=== PATIENT | male | born 1960 | race Caucasian/White ===

== ENCOUNTER → 2016-12-14 | Outpatient (REF) | payer OTHER ==
[2016-12-14 12:02] LABS: BASO % 0.6 % (0.0-1.0); EOS # 0.4 K/mm3 (0.0-0.50); EOS % 5.9 % (0.0-3.0); LARGE UNSTAINED CELL # 0.1 K/mm3 (0.0-0.4); LARGE UNSTAINED CELL % 1.1 % (0.0-4.0); LYMPH # 1.7 K/mm3 (1.5-4.5); LYMPH % 24.2 % (24.0-44.0); MEAN CORPUSCULAR HEMOGLOBIN 28.2 pg (27.0-33.0); MEAN CORPUSCULAR HGB CONC 33.4 g/dl (32.0-36.5); MEAN CORPUSCULAR VOLUME 84.6 fl (80.0-96.0); MONO # 0.6 K/mm3 (0.0-0.8); MONO % 9.5 % (0.0-5.0); NEUTROPHILS # 3.9 K/mm3 (1.8-7.7); NEUTROPHILS % 58.6 % (36.0-66.0); PLATELET COUNT, AUTOMATED 345 k/mm3 (150-450); RED CELL DISTRIBUTION WIDTH 13.9 % (11.5-14.5); WHITE BLOOD COUNT 6.6 K/mm3 (4.0-10.0)
[2016-12-14 12:12] LABS: ALBUMIN 3.4 GM/DL (3.2-5.2); ALBUMIN/GLOBULIN RATIO 0.76 (1.00-1.93); ALKALINE PHOSPHATASE 116 U/L (45-117); ALT/SGPT 33 U/L (12-78); ANION GAP 8 MEQ/L (8-16); AST/SGOT 21 U/L (15-37); BILIRUBIN,TOTAL 0.5 MG/DL (0.2-1.0); BLOOD UREA NITROGEN 14 MG/DL (7-18); CARBON DIOXIDE LEVEL 27 MEQ/L (21-32); CHLORIDE LEVEL 105 MEQ/L (98-107); CHOLESTEROL LEVEL 185 MG/DL (<200); CREATININE FOR GFR 1.02 MG/DL (0.70-1.30); GLOMERULAR FILTRATION RATE > 60.0 (>56); GLUCOSE, FASTING 97 MG/DL (70-105); POTASSIUM SERUM 4.3 MEQ/L (3.5-5.1); SODIUM LEVEL 140 MEQ/L (136-145); TOTAL PROTEIN 7.9 GM/DL (6.4-8.2); TRIGLYCERIDES LEVEL 144 MG/DL (<150)
== END ==
LOC: M SFHCCLAY 08:22
PROVIDERS: ATTEND Nurse Practitioner
DX: D47.3 Essential (hemorrhagic) thrombocythemia (principal); Z00.00 Encounter for general adult medical examination without abnormal findings; Z12.5 Encounter for screening for malignant neoplasm of prostate

== ENCOUNTER → 2017-07-31 | Outpatient (REF) | payer OTHER | LOC: M SFHCCLAY 08:48 | PROVIDERS: ATTEND Nurse Practitioner Family | DX: T88.8XXD Other specified complications of surgical and medical care, not elsewhere classified, subsequent encounter (principal) ==

== ENCOUNTER → 2017-08-02 | Outpatient (CLI) | payer OTHER ==
--- NOTE | 2017-08-02 13:39 | REP ---
ULTRASOUND RIGHT LEG SOFT TISSUES: Real-time sonographic evaluation of the right leg soft tissues performed. In the posterior right thigh there is reportedly fluid drainage from the skin. At that location there is a underlying sinus tract containing complex fluid which communicates with an oval complex fluid collection at the lateral aspect of the knee soft tissues. This fluid collection measures approximately 12 x 1.3 x 4.4 cm. Signed by Daniel Harmon MD 08/03/2017 09:12 A
== END ==
LOC: M RAD 10:21 → EEVIPCON 10:21
PROVIDERS: ATTEND Nurse Practitioner Family
DX: T88.8XXD Other specified complications of surgical and medical care, not elsewhere classified, subsequent encounter (principal); X58.XXXD Exposure to other specified factors, subsequent encounter; Y92.89 Other specified places as the place of occurrence of the external cause; Y93.89 Activity, other specified; Y99.8 Other external cause status

== ENCOUNTER → 2017-11-09 | Outpatient (CLI) | payer BC | LOC: M RAD 08:51 | DX: K80.20 Calculus of gallbladder without cholecystitis without obstruction (principal); R93.3 Abnormal findings on diagnostic imaging of other parts of digestive tract ==

== ENCOUNTER → 2017-12-04 | Outpatient (REF) | payer BC ==
[2017-12-04 16:02] LABS: BASO % 0.1 % (0.0-1.0); EOS # 0.6 10^3/uL (0.0-0.50); EOS % 6.5 % (0.0-3.0); HEMATOCRIT 41.6 % (42.0-52.0); HEMOGLOBIN 13.2 g/dl (13.5-17.5); IMMATURE GRANULOCYTE % 0.7 % (0-3.0); LYMPH # 1.7 10^3/uL (1.5-4.5); LYMPH % 19.3 % (24.0-44.0); MEAN CORPUSCULAR HEMOGLOBIN 26.5 pg (27.0-33.0); MEAN CORPUSCULAR HGB CONC 31.7 g/dl (32.0-36.5); MEAN CORPUSCULAR VOLUME 83.4 fl (80.0-96.0); MONO # 0.7 10^3/uL (0.0-0.8); MONO % 8.4 % (0.0-5.0); NEUTROPHILS # 5.7 10^3/uL (1.8-7.7); PLATELET COUNT, AUTOMATED 632 10^3/uL (150-450); RED BLOOD COUNT 4.99 10^6/uL (4.30-6.10); RED CELL DISTRIBUTION WIDTH 14.9 % (11.5-14.5); WHITE BLOOD COUNT 8.8 10^3/uL (4.0-10.0)
[2017-12-04 16:18] LABS: ALBUMIN 2.8 GM/DL (3.2-5.2); ALBUMIN/GLOBULIN RATIO 0.52 (1.00-1.93); ALKALINE PHOSPHATASE 206 U/L (45-117); ALT/SGPT 68 U/L (12-78); ANION GAP 5 MEQ/L (8-16); AST/SGOT 46 U/L (7-37); BILIRUBIN,TOTAL 1.2 MG/DL (0.2-1.0); BLOOD UREA NITROGEN 12 MG/DL (7-18); C REACTIVE PROTEIN QUANTITATIV 5.95 MG/DL (0.00-0.30); CALCIUM LEVEL 8.9 MG/DL (8.5-10.1); CARBON DIOXIDE LEVEL 27 MEQ/L (21-32); CHLORIDE LEVEL 106 MEQ/L (98-107); CREATININE FOR GFR 0.99 MG/DL (0.70-1.30); GLOMERULAR FILTRATION RATE > 60.0 (>56); GLUCOSE, FASTING 64 MG/DL (70-100); SODIUM LEVEL 138 MEQ/L (136-145); TOTAL PROTEIN 8.2 GM/DL (6.4-8.2); VANCOMYCIN RANDOM 37.6 UG/ML
[2017-12-04 16:24] LABS: ERYTHROCYTE SEDIMENTATION RATE 58 mm/hr (0-20)
== END ==
LOC: M LAB REF 15:53
DX: Z79.2 Long term (current) use of antibiotics (principal); M86.60 Other chronic osteomyelitis, unspecified site
CPT/HCPCS: 80053

== ENCOUNTER → 2017-12-07 | Outpatient (REF) | payer BC ==
[2017-12-07 14:42] LABS: ALBUMIN 2.7 GM/DL (3.2-5.2); ALBUMIN/GLOBULIN RATIO 0.55 (1.00-1.93); ALKALINE PHOSPHATASE 183 U/L (45-117); ALT/SGPT 63 U/L (12-78); ANION GAP 6 MEQ/L (8-16); AST/SGOT 33 U/L (7-37); BLOOD UREA NITROGEN 13 MG/DL (7-18); CALCIUM LEVEL 8.6 MG/DL (8.5-10.1); CARBON DIOXIDE LEVEL 28 MEQ/L (21-32); CHLORIDE LEVEL 107 MEQ/L (98-107); GLOMERULAR FILTRATION RATE > 60.0 (>56); GLUCOSE, FASTING 113 MG/DL (70-100); POTASSIUM SERUM 4.4 MEQ/L (3.5-5.1); SODIUM LEVEL 141 MEQ/L (136-145); TOTAL PROTEIN 7.6 GM/DL (6.4-8.2)
== END ==
LOC: M LAB REF 13:29
DX: M86.60 Other chronic osteomyelitis, unspecified site (principal); T84.7XXD Infection and inflammatory reaction due to other internal orthopedic prosthetic devices, implants and grafts, subsequent encounter; Z79.2 Long term (current) use of antibiotics
CPT/HCPCS: 80053

== ENCOUNTER → 2017-12-11 | Outpatient (REF) | payer BC ==
[2017-12-11 11:47] LABS: BASO % 0.4 % (0.0-1.0); EOS # 1.2 10^3/uL (0.0-0.50); EOS % 13.5 % (0.0-3.0); HEMATOCRIT 42.4 % (42.0-52.0); HEMOGLOBIN 13.5 g/dl (13.5-17.5); IMMATURE GRANULOCYTE % 1.7 % (0-3.0); LYMPH # 2.3 10^3/uL (1.5-4.5); LYMPH % 24.9 % (24.0-44.0); MEAN CORPUSCULAR HEMOGLOBIN 26.6 pg (27.0-33.0); MEAN CORPUSCULAR HGB CONC 31.8 g/dl (32.0-36.5); MEAN CORPUSCULAR VOLUME 83.5 fl (80.0-96.0); MONO # 1.1 10^3/uL (0.0-0.8); MONO % 12.4 % (0.0-5.0); NEUTROPHILS # 4.3 10^3/uL (1.8-7.7); NEUTROPHILS % 47.1 % (36.0-66.0); PLATELET COUNT, AUTOMATED 489 10^3/uL (150-450); RED BLOOD COUNT 5.08 10^6/uL (4.30-6.10); RED CELL DISTRIBUTION WIDTH 14.8 % (11.5-14.5); WHITE BLOOD COUNT 9.1 10^3/uL (4.0-10.0)
[2017-12-11 12:16] LABS: ALKALINE PHOSPHATASE 199 U/L (45-117); ALT/SGPT 89 U/L (12-78); ANION GAP 8 MEQ/L (8-16); AST/SGOT 66 U/L (7-37); BLOOD UREA NITROGEN 16 MG/DL (7-18); C REACTIVE PROTEIN QUANTITATIV 2.41 MG/DL (0.00-0.30); CALCIUM LEVEL 8.6 MG/DL (8.5-10.1); CARBON DIOXIDE LEVEL 27 MEQ/L (21-32); CHLORIDE LEVEL 107 MEQ/L (98-107); CREATININE FOR GFR 1.03 MG/DL (0.70-1.30); GLOMERULAR FILTRATION RATE > 60.0 (>56); GLUCOSE, FASTING 69 MG/DL (70-100); POTASSIUM SERUM 4.5 MEQ/L (3.5-5.1); SODIUM LEVEL 142 MEQ/L (136-145); VANCOMYCIN RANDOM 31.4 UG/ML
[2017-12-11 14:21] LABS: ERYTHROCYTE SEDIMENTATION RATE 40 mm/hr (0-20)
== END ==
LOC: M LAB REF 11:27
DX: T84.7XXD Infection and inflammatory reaction due to other internal orthopedic prosthetic devices, implants and grafts, subsequent encounter (principal); Z79.2 Long term (current) use of antibiotics; M86.60 Other chronic osteomyelitis, unspecified site
CPT/HCPCS: 80053

== ENCOUNTER → 2017-12-15 | Outpatient (REF) | payer BC ==
[2017-12-15 12:41] LABS: BASO % 0.4 % (0.0-1.0); EOS # 1.2 10^3/uL (0.0-0.50); EOS % 14.2 % (0.0-3.0); HEMATOCRIT 42.8 % (42.0-52.0); HEMOGLOBIN 13.9 g/dl (13.5-17.5); LYMPH # 1.7 10^3/uL (1.5-4.5); LYMPH % 20.8 % (24.0-44.0); MEAN CORPUSCULAR HEMOGLOBIN 26.7 pg (27.0-33.0); MEAN CORPUSCULAR HGB CONC 32.5 g/dl (32.0-36.5); MEAN CORPUSCULAR VOLUME 82.3 fl (80.0-96.0); MONO # 1.3 10^3/uL (0.0-0.8); NEUTROPHILS # 3.9 10^3/uL (1.8-7.7); NEUTROPHILS % 47.6 % (36.0-66.0); PLATELET COUNT, AUTOMATED 469 10^3/uL (150-450); RED CELL DISTRIBUTION WIDTH 15.1 % (11.5-14.5); WHITE BLOOD COUNT 8.1 10^3/uL (4.0-10.0)
[2017-12-15 13:05] LABS: ERYTHROCYTE SEDIMENTATION RATE 12 mm/hr (0-20)
[2017-12-15 13:14] LABS: ALBUMIN 2.9 GM/DL (3.2-5.2); ALBUMIN/GLOBULIN RATIO 0.66 (1.00-1.93); ALKALINE PHOSPHATASE 159 U/L (45-117); ALT/SGPT 91 U/L (12-78); ANION GAP 8 MEQ/L (8-16); AST/SGOT 60 U/L (7-37); BILIRUBIN,TOTAL 0.8 MG/DL (0.2-1.0); BLOOD UREA NITROGEN 12 MG/DL (7-18); C REACTIVE PROTEIN QUANTITATIV 0.83 MG/DL (0.00-0.30); CALCIUM LEVEL 8.5 MG/DL (8.5-10.1); CARBON DIOXIDE LEVEL 25 MEQ/L (21-32); CHLORIDE LEVEL 109 MEQ/L (98-107); CREATININE FOR GFR 0.98 MG/DL (0.70-1.30); GLOMERULAR FILTRATION RATE > 60.0 (>56); GLUCOSE, FASTING 108 MG/DL (70-100); POTASSIUM SERUM 4.8 MEQ/L (3.5-5.1); SODIUM LEVEL 142 MEQ/L (136-145); TOTAL PROTEIN 7.3 GM/DL (6.4-8.2); VANCOMYCIN RANDOM 20.5 UG/ML
== END ==
LOC: M LAB REF 12:01
DX: T84.7XXD Infection and inflammatory reaction due to other internal orthopedic prosthetic devices, implants and grafts, subsequent encounter (principal); Z79.2 Long term (current) use of antibiotics; Y83.1 Surgical operation with implant of artificial internal device as the cause of abnormal reaction of the patient, or of later complication, without mention of misadventure at the time of the procedure
CPT/HCPCS: 80053

== ENCOUNTER → 2017-12-18 | Outpatient (REF) | payer BC ==
[2017-12-18 15:34] LABS: BASO % 0.5 % (0.0-1.0); EOS # 0.9 10^3/uL (0.0-0.50); EOS % 10.6 % (0.0-3.0); HEMOGLOBIN 13.8 g/dl (13.5-17.5); IMMATURE GRANULOCYTE % 0.6 % (0-3.0); LYMPH # 1.9 10^3/uL (1.5-4.5); LYMPH % 22.9 % (24.0-44.0); MEAN CORPUSCULAR HEMOGLOBIN 26.6 pg (27.0-33.0); MEAN CORPUSCULAR HGB CONC 32.1 g/dl (32.0-36.5); MEAN CORPUSCULAR VOLUME 82.9 fl (80.0-96.0); MONO # 1.4 10^3/uL (0.0-0.8); MONO % 16.5 % (0.0-5.0); NEUTROPHILS # 4.1 10^3/uL (1.8-7.7); NEUTROPHILS % 48.9 % (36.0-66.0); PLATELET COUNT, AUTOMATED 450 10^3/uL (150-450); RED BLOOD COUNT 5.19 10^6/uL (4.30-6.10); RED CELL DISTRIBUTION WIDTH 15.4 % (11.5-14.5); WHITE BLOOD COUNT 8.3 10^3/uL (4.0-10.0)
[2017-12-18 15:52] LABS: ALBUMIN 3.1 GM/DL (3.2-5.2); ALBUMIN/GLOBULIN RATIO 0.72 (1.00-1.93); ALKALINE PHOSPHATASE 157 U/L (45-117); ALT/SGPT 81 U/L (12-78); ANION GAP 6 MEQ/L (8-16); AST/SGOT 47 U/L (7-37); BILIRUBIN,TOTAL 0.8 MG/DL (0.2-1.0); BLOOD UREA NITROGEN 14 MG/DL (7-18); C REACTIVE PROTEIN QUANTITATIV 0.66 MG/DL (0.00-0.30); CALCIUM LEVEL 9.1 MG/DL (8.5-10.1); CARBON DIOXIDE LEVEL 30 MEQ/L (21-32); CHLORIDE LEVEL 107 MEQ/L (98-107); CREATININE FOR GFR 0.94 MG/DL (0.70-1.30); GLOMERULAR FILTRATION RATE > 60.0 (>56); GLUCOSE, FASTING 60 MG/DL (70-100); POTASSIUM SERUM 4.1 MEQ/L (3.5-5.1); SODIUM LEVEL 143 MEQ/L (136-145); TOTAL PROTEIN 7.4 GM/DL (6.4-8.2); VANCOMYCIN RANDOM 19.5 UG/ML
[2017-12-18 16:19] LABS: ERYTHROCYTE SEDIMENTATION RATE 13 mm/hr (0-20)
== END ==
LOC: M LAB REF 15:23
DX: Z79.2 Long term (current) use of antibiotics (principal)
CPT/HCPCS: 80053

== ENCOUNTER → 2017-12-25 | Outpatient (REF) | payer BC ==
[2017-12-25 11:07] LABS: BASO % 0.4 % (0.0-1.0); EOS # 1.7 10^3/uL (0.0-0.50); HEMATOCRIT 43.4 % (42.0-52.0); HEMOGLOBIN 13.9 g/dl (13.5-17.5); IMMATURE GRANULOCYTE % 0.1 % (0-3.0); LYMPH # 1.5 10^3/uL (1.5-4.5); LYMPH % 19.8 % (24.0-44.0); MEAN CORPUSCULAR HEMOGLOBIN 26.7 pg (27.0-33.0); MEAN CORPUSCULAR VOLUME 83.5 fl (80.0-96.0); MONO # 0.9 10^3/uL (0.0-0.8); MONO % 11.7 % (0.0-5.0); NEUTROPHILS # 3.3 10^3/uL (1.8-7.7); NEUTROPHILS % 45.2 % (36.0-66.0); PLATELET COUNT, AUTOMATED 327 10^3/uL (150-450); RED CELL DISTRIBUTION WIDTH 15.3 % (11.5-14.5); WHITE BLOOD COUNT 7.4 10^3/uL (4.0-10.0)
[2017-12-25 11:30] LABS: EOS % 22.8 % (0.0-3.0); POSITIVE DIFF POS FLAG
[2017-12-25 11:32] LABS: ALBUMIN/GLOBULIN RATIO 0.73 (1.00-1.93); ALKALINE PHOSPHATASE 140 U/L (45-117); ALT/SGPT 63 U/L (12-78); ANION GAP 4 MEQ/L (8-16); AST/SGOT 43 U/L (7-37); BILIRUBIN,TOTAL 0.7 MG/DL (0.2-1.0); BLOOD UREA NITROGEN 15 MG/DL (7-18); C REACTIVE PROTEIN QUANTITATIV 1.63 MG/DL (0.00-0.30); CALCIUM LEVEL 8.7 MG/DL (8.5-10.1); CARBON DIOXIDE LEVEL 29 MEQ/L (21-32); CHLORIDE LEVEL 109 MEQ/L (98-107); CREATININE FOR GFR 0.99 MG/DL (0.70-1.30); GLOMERULAR FILTRATION RATE > 60.0 (>56); GLUCOSE, FASTING 97 MG/DL (70-100); POTASSIUM SERUM 4.2 MEQ/L (3.5-5.1); SODIUM LEVEL 142 MEQ/L (136-145); TOTAL PROTEIN 7.1 GM/DL (6.4-8.2); VANCOMYCIN RANDOM 16.4 UG/ML
[2017-12-25 11:42] LABS: ERYTHROCYTE SEDIMENTATION RATE 20 mm/hr (0-20)
== END ==
LOC: M LAB REF 10:58
DX: Z79.2 Long term (current) use of antibiotics (principal); M86.60 Other chronic osteomyelitis, unspecified site; T84.7XXD Infection and inflammatory reaction due to other internal orthopedic prosthetic devices, implants and grafts, subsequent encounter; Y83.8 Other surgical procedures as the cause of abnormal reaction of the patient, or of later complication, without mention of misadventure at the time of the procedure
CPT/HCPCS: 80053

== ENCOUNTER → 2018-02-07 | Outpatient (REF) | payer BC | LOC: M SFHCCLAY 11:50 | DX: M86.459 Chronic osteomyelitis with draining sinus, unspecified femur (principal) | CPT/HCPCS: 87070; 87186 ==

== ENCOUNTER → 2018-02-08 | Outpatient (CLI) | payer BC | LOC: M RAD 09:40 | DX: T88.8XXD Other specified complications of surgical and medical care, not elsewhere classified, subsequent encounter (principal); Y83.9 Surgical procedure, unspecified as the cause of abnormal reaction of the patient, or of later complication, without mention of misadventure at the time of the procedure | CPT/HCPCS: 76882 ==

== ENCOUNTER → 2018-07-16 | Outpatient (REF) | payer BC ==
[2018-07-16 11:56] LABS: BASO % 0.4 % (0.0-1.0); EOS # 0.3 10^3/uL (0.0-0.50); EOS % 4.3 % (0.0-3.0); HEMATOCRIT 48.3 % (42.0-52.0); HEMOGLOBIN 15.8 g/dl (13.5-17.5); IMMATURE GRANULOCYTE % 0.1 % (0-3.0); LYMPH # 1.1 10^3/uL (1.5-4.5); LYMPH % 16.6 % (24.0-44.0); MEAN CORPUSCULAR HEMOGLOBIN 28.1 pg (27.0-33.0); MEAN CORPUSCULAR HGB CONC 32.7 g/dl (32.0-36.5); MEAN CORPUSCULAR VOLUME 85.8 fl (80.0-96.0); MONO # 0.8 10^3/uL (0.0-0.8); MONO % 11.3 % (0.0-5.0); NEUTROPHILS # 4.5 10^3/uL (1.8-7.7); NEUTROPHILS % 67.3 % (36.0-66.0); PLATELET COUNT, AUTOMATED 384 10^3/uL (150-450); RED BLOOD COUNT 5.63 10^6/uL (4.30-6.10); RED CELL DISTRIBUTION WIDTH 14.7 % (11.5-14.5); WHITE BLOOD COUNT 6.7 10^3/uL (4.0-10.0)
[2018-07-16 12:39] LABS: ALBUMIN 3.2 GM/DL (3.2-5.2); ALBUMIN/GLOBULIN RATIO 0.86 (1.00-1.93); ALKALINE PHOSPHATASE 115 U/L (45-117); ALT/SGPT 45 U/L (12-78); ANION GAP 8 MEQ/L (8-16); AST/SGOT 36 U/L (7-37); BILIRUBIN,TOTAL 0.5 MG/DL (0.2-1.0); BLOOD UREA NITROGEN 13 MG/DL (7-18); CARBON DIOXIDE LEVEL 28 MEQ/L (21-32); CHLORIDE LEVEL 108 MEQ/L (98-107); CREATININE FOR GFR 0.85 MG/DL (0.70-1.30); FREE T4 0.95 NG/DL (0.76-1.46); GLOMERULAR FILTRATION RATE > 60.0 (>56); GLUCOSE, FASTING 95 MG/DL (70-100); POTASSIUM SERUM 4.5 MEQ/L (3.5-5.1); SODIUM LEVEL 144 MEQ/L (136-145); THYROID STIMULATING HORMONE 0.587 uIU/ML (0.358-3.740); TOTAL PROTEIN 6.9 GM/DL (6.4-8.2)
== END ==
LOC: M SFHCCLAY 07:48
DX: R25.2 Cramp and spasm (principal); R26.9 Unspecified abnormalities of gait and mobility; R63.4 Abnormal weight loss
CPT/HCPCS: 84443

== ENCOUNTER → 2019-09-23 | Outpatient (CLI) | payer BC ==
--- NOTE | 2019-09-23 16:52 | REP ---
Right shoulder three views: There is acromioclavicular osteoarthritis. Mineralization is normal. There is no fracture or dislocation. I suspect there is calcification of the coracoclavicular ligament. This may be degenerative or from prior injury. There are no other calcifications. No fracture or dislocation. Impression: Coracoclavicular ligament calcification. Acromioclavicular osteoarthritis. Otherwise, negative right shoulder. Electronically Signed by Daniel Tang MD 09/23/2019 04:44 P
--- NOTE | 2019-09-23 16:58 | REP ---
Left hip including the femur five views: There is an intramedullary aquiles extending from the greater trochanter to just above the knee transfixing a healed fracture at the junction of the middle distal thirds of the femur. The fracture has healed in satisfactory position alignment. There is exuberant callous along the superior margin of the greater trochanter. There is exuberant callus at the healed fracture site. There is mild joint space narrowing of the right hip superiorly compatible with osteoarthritis. The exuberant callus at the greater tuberosity may impinge the left hip acetabular roof. Electronically Signed by Daniel Tang MD 09/23/2019 04:49 P
== END ==
LOC: M CLY 13:43
PROVIDERS: ATTEND Nurse Practitioner Family
DX: M25.511 Pain in right shoulder (principal); M25.552 Pain in left hip

== ENCOUNTER → 2019-09-23 | Outpatient (REF) | payer BC ==
[2019-09-23 16:53] LABS: BASO % 0.4 % (0.0-1.0); EOS # 0.2 10^3/uL (0.0-0.5); HEMATOCRIT 47.5 % (42.0-52.0); HEMOGLOBIN 15.6 g/dl (13.5-17.5); LYMPH # 1.9 10^3/uL (1.5-5.0); LYMPH % 20.8 % (24.0-44.0); MEAN CORPUSCULAR HEMOGLOBIN 28.4 pg (27.0-33.0); MEAN CORPUSCULAR HGB CONC 32.8 g/dl (32.0-36.5); MEAN CORPUSCULAR VOLUME 86.5 fl (80.0-96.0); MONO % 11.3 % (0.0-5.0); NEUTROPHILS # 5.9 10^3/uL (1.5-8.5); NEUTROPHILS % 65.1 % (36.0-66.0); PLATELET COUNT, AUTOMATED 339 10^3/uL (150-450); RED BLOOD COUNT 5.49 10^6/uL (4.30-6.10); WHITE BLOOD COUNT 9.1 10^3/uL (4.0-10.0)
[2019-09-23 17:29] LABS: HEMOGLOBIN A1c 5.7 %
[2019-09-23 17:32] LABS: ALBUMIN 3.8 GM/DL (3.2-5.2); ALT/SGPT 37 U/L (12-78); BILIRUBIN,TOTAL 0.5 MG/DL (0.2-1.0); BLOOD UREA NITROGEN 17 MG/DL (7-18); CALCIUM LEVEL 9.3 MG/DL (8.5-10.1); CARBON DIOXIDE LEVEL 29 MEQ/L (21-32); CHLORIDE LEVEL 105 MEQ/L (98-107); CHOLESTEROL LEVEL 189 MG/DL (<200); CHOLESTEROL RISK RATIO 3.048 (<5); CREATININE FOR GFR 1.05 MG/DL (0.70-1.30); GLOMERULAR FILTRATION RATE > 60.0 (>56); GLUCOSE, FASTING 80 MG/DL (70-100); HDL CHOLESTEROL 62 MG/DL (>40); LDL CHOLESTEROL 111 MG/DL (<100); NON-HDL-C 127 MG/DL; POTASSIUM SERUM 4.3 MEQ/L (3.5-5.1); SODIUM LEVEL 139 MEQ/L (136-145); TOTAL PROTEIN 7.6 GM/DL (6.4-8.2); TRIGLYCERIDES LEVEL 82 MG/DL (<150)
== END ==
LOC: M SFHCCLAY 13:24
PROVIDERS: ATTEND Nurse Practitioner Family
DX: R03.0 Elevated blood-pressure reading, without diagnosis of hypertension (principal); Z13.1 Encounter for screening for diabetes mellitus

== ENCOUNTER 2020-05-11 12:19 | Inpatient (IN) | payer BC ==
[~2020-05-11] VITALS: Ht 188 cm; Wt 98.6 kg
[2020-05-11 13:19] LABS: BASO % 0.1 % (0.0-1.0); EOS % 0.1 % (0.0-3.0); HEMATOCRIT 49.4 % (42.0-52.0); HEMOGLOBIN 16.1 g/dl (13.5-17.5); LYMPH # 1.3 10^3/uL (1.5-5.0); LYMPH % 6.8 % (24.0-44.0); MEAN CORPUSCULAR HEMOGLOBIN 28.3 pg (27.0-33.0); MEAN CORPUSCULAR HGB CONC 32.6 g/dl (32.0-36.5); MONO # 1.8 10^3/uL (0.0-0.8); MONO % 9.7 % (0.0-5.0); NEUTROPHILS # 15.3 10^3/uL (1.5-8.5); NEUTROPHILS % 82.7 % (36.0-66.0); PLATELET COUNT, AUTOMATED 303 10^3/uL (150-450); RED BLOOD COUNT 5.68 10^6/uL (4.30-6.10); WHITE BLOOD COUNT 18.5 10^3/uL (4.0-10.0)
[2020-05-11] MEDS ORDERED: methylPREDNISolone 125MG 2ML VIAL IV ONE (13:30)
[2020-05-11] MEDS ORDERED: ALBUTEROL SULFATE 2.5 MG/0.5 ML INH NEB SOLN INH ONE (13:30)
[2020-05-11] MEDS ORDERED: IPRATROPIUM 0.5MG/ALBUTEROL 2.5MG INH SOL UD 3ML (DUONEB) NEB ONE (13:30)
--- NOTE | 2020-05-11 13:39 | REPVR ---
PROCEDURE INFORMATION: Exam: XR Chest, 1 View Exam date and time: 05/11/2020 1:07 PM Age: 59 years old Clinical indication: Shortness of breath; Additional info: SOB TECHNIQUE: Imaging protocol: XR of the chest Views: 1 view. COMPARISON: No relevant prior studies available. FINDINGS: Lungs: Bilateral patchy pulmonary consolidation, right greater than left. Pleural space: Unremarkable. No pleural effusion. No pneumothorax. Heart/Mediastinum: Mild prominence of the cardiac silhouette. Bones/joints: Degenerative change of the spine. IMPRESSION: Bilateral pulmonary consolidation, which may be due to alveolar edema versus pneumonia. Electronically signed by: Natalya Pinto On 05/11/2020 13:39:34 PM
[2020-05-11 13:53] LABS: ALBUMIN 2.9 GM/DL (3.2-5.2); ALT/SGPT 25 U/L (12-78); BILIRUBIN,DIRECT 0.6 MG/DL (0.0-0.2); BILIRUBIN,TOTAL 1.4 MG/DL (0.2-1.0); BLOOD UREA NITROGEN 33 MG/DL (7-18); CALCIUM LEVEL 9.3 MG/DL (8.5-10.1); CARBON DIOXIDE LEVEL 25 MEQ/L (21-32); CHLORIDE LEVEL 102 MEQ/L (98-107); CK-MB VALUE MASS 4.2 NG/ML (<3.6); CPK CREATINE PHOSPHOKINASE 295 U/L (39-308); CREATININE FOR GFR 1.23 MG/DL (0.70-1.30); GLOMERULAR FILTRATION RATE > 60.0 (>56); GLUCOSE, FASTING 125 MG/DL (70-100); MB/CK RELATIVE INDEX 1.42 (< OR =4); NT-PRO BNP 5024 PG/ML (<125); POTASSIUM SERUM 4.5 MEQ/L (3.5-5.1); SODIUM LEVEL 135 MEQ/L (136-145); THYROID STIMULATING HORMONE 0.941 uIU/ML (0.358-3.740); TOTAL PROTEIN 7.5 GM/DL (6.4-8.2); TROPONIN I 0.08 NG/ML (< 0.10)
[2020-05-11] MEDS ORDERED: cefTRIAXone SOD 1 GM in D5W MINI-BAG PLUS 50 ML IV ONE (14:00)
[2020-05-11] MEDS ORDERED: DOXYCYCLINE HYCLATE 100 MG in D5W MINI-BAG PLUS 100 ML IV ONE (14:00)
[2020-05-11 14:10] LABS: ERYTHROCYTE SEDIMENTATION RATE 41 mm/hr (0-20)
[2020-05-11] MEDS ORDERED: FUROSEMIDE 20MG/2ML VIAL (J1940) IV ONE (14:15)
[2020-05-11] MEDS ORDERED: BETA0.0543 TOP (14:22)
[2020-05-11] MEDS ORDERED: CLAR5TAB7 PO (14:22)
[2020-05-11] MEDS ORDERED: ACETAMINOPHEN TAB 650MG DOSE (2X325MG) PO PRN (15:00)
[2020-05-11] MEDS ORDERED: ALBUTEROL 90 MCG/ACT 8GM HFA INHALER INH PRN (15:00)
--- NOTE | 2020-05-11 15:14 | HPEPDOC ---
General Date of Admission 05/11/20 Date of Service: May 11, 2020 Chief Complaint The patient is a 59-year-old male admitted with a reason for visit of Diff Breathing. Source: Patient Exam Limitations: No limitations Timing/Duration: Day(s) Severity: Severe Associated Symptoms: Shortness of breath History of Present Illness Patient is 59 years old male with past medical history of BPH, chronic hip and knee pain presented to the hospital with acute hypoxemic respiratory failure. Patient stated that for past few days he developed increased shortness of breath associated with fatigue. Patient denied any fever or chills. In ER patient was found to have tachycardia, acute hypoxemic respiratory failure requiring high flow oxygen via nasal cannula., White blood count of 18.5, BNP 5024, chest x-ray showed Bilateral pulmonary consolidation, which may be due to alveolar edema versus pneumonia. Troponin 0.08. EKG showed sinus tachycardia Home Medications Scheduled Betamethasone Dipropionate (Betamethasone Dipropionate) 0.05% Cream..g., 1 AP PLIC TOP BID, (Reported) APPLY TO WRISTS AND FOREARMS Scheduled PRN Loratadine/Pseudoephedrine (Claritin-D 12 Hour Tablet) 1 Each Tab.er.12h, 1 TAB PO DAILY PRN for SEASONAL ALLERGIES, (Reported) Allergies Coded Allergies: No Known Allergies (Verified , 02/24/03) Past Medical History Medical History BPH HX ELEVATED PLATELET COUNT CHRONIC PAIN- HIPS/KNEES SEASONAL ALLERGIES GERD Surgical History FX RIGHT FEMUR, LEFT FEMUR- ORIF, RIGHT ARM ORIF 2001 SAMINA REMOVED FOR RIGHT LEG 11/16/2017 GALLBLADDER 11/2017 MRSA OSTEOMYELITIS, 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 Social History * Smoker: former Smoker Alcohol: occationally Drugs: denies A-FIB/CHADSVASC A-FIB History Current/History of A-Fib/PAF?: No Current PO Anticoag Therapy: No Review of Systems Constitutional: Reports: Malaise, Fatigue; Denies: Chills, Fever Eyes: Denies: Pain ENT: Denies: Head Aches Skin: Denies: Rash Pulmonary: Reports: Dyspnea Cardiovascular: Reports: Palpitations; Denies: Chest Pain Gastrointestinal: Denies: Nausea, Vomiting Genitourinary: Denies: Frequency Hematologic: Denies: Bruising Endocrine: Denies: Polyphagia Musculoskeletal: Denies: Neck Pain Neurological: Denies: Weakness Psych: Reports: Mood Normal Physical Examination General Exam: Positive: Alert, Cooperative Eye Exam: Positive: PERRLA ENT Exam: Positive: Atraumatic Neck Exam: Positive: Supple, JVD Chest Exam: Positive: Diminished; Negative: Clear to auscultation Heart Exam: Positive: Tachycardic Telemetry: Positive: Sinus Abdomen Exam: Positive: Normal bowel sounds Extremity Exam: Negative: Clubbing, Cyanosis Skin Exam: Positive: Nl turgor and temperature Neuro Exam: Positive: Strength at 5/5 X4 ext, Cranial Nerves 3-12 NL Psych Exam: Positive: Mental status NL Vital Signs Vital Signs Date Time Temp Pulse Resp B/P (MAP) Pulse Ox O2 Delivery O2 Flow Rate FiO2 05/11/20 13:45 125 32 127/86 (100) 95 05/11/20 13:45 97.4 Room Air Laboratory Data Labs 24H Laboratory Tests 2 05/11/20 12:45: Immature Granulocyte % (Auto) 0.6, Neutrophils (%) (Auto) 82.7H, Lymphocytes (%) (Auto) 6.8L, Monocytes (%) (Auto) 9.7H, Eosinophils (%) (Auto) 0.1, Basophils (%) (Auto) 0.1, Neutrophils # (Auto) 15.3H, Lymphocytes # (Auto) 1.3L, Monocytes # (Auto) 1.8H, Eosinophils # (Auto) 0.0, Basophils # (Auto) 0.0, Nucleated Red Blood Cells % (auto) 0.0, Erythrocyte Sedimentation Rate 41H, Anion Gap 8, Glomerular Filtration Rate > 60.0, Calcium Level 9.3, Total Bilirubin 1.4H, Direct Bilirubin 0.6H, Aspartate Amino Transf (AST/SGOT) 27, Alanine Aminotransferase (ALT/SGPT) 25, Alkaline Phosphatase 125H, Total Creatine Kinase 295, Creatine Kinase MB 4.2H, Creatine Kinase MB Relative Index 1.42, Troponin I 0.08, C-Reactive Protein, Quantitative 25.70H, MO-Sau-X-Type Natriuretic Peptide 5024H, Total Protein 7.5, Albumin 2.9L, Albumin/Globulin Ratio 0.6, Thyroid Stimulating Hormone (TSH) 0.941 CBC/BMP Laboratory Tests 05/11/20 12:45 Microbiology Microbiology 05/11/20 Blood Culture, Received Pending 05/11/20 Respiratory Virus Panel (PCR) (ARIEL), Received Pending 05/11/20 Blood Culture, Received Pending Assessment/Plan Patient is 59 years old male with past medical history of BPH, chronic hip and knee pain presented to the hospital with acute hypoxemic respiratory failure. Patient stated that for past few days he developed increased shortness of breath associated with fatigue. Patient denied any fever or chills. In ER patient was found to have tachycardia, acute hypoxemic respiratory failure requiring high flow oxygen via nasal cannula., White blood count of 18.5, BNP 5024, chest x-ray showed Bilateral pulmonary consolidation, which may be due to alveolar edema versus pneumonia. Troponin 0.08. EKG showed sinus tachycardia Problems (1) Sepsis Status: Acute Problem Text: Most likely secondary to bilateral pneumonia Patient has tachypnea, tachycardia, elevated white blood count Cephalexin IV, azithromycin IV MRSA screen Hold fluid for now due to acute CHF (2) Congestive heart failure Status: Acute Problem Text: BNP significantly elevated, plus JVD Echo STAT I's and O's Cardiac diet Dr Newberry was contacted by phone he recommended IV Lasix. Continue to monitor troponin (3) Pneumonia Status: Acute Problem Text: X-ray showed Bilateral pulmonary consolidation, which may be due to alveolar edema versus pneumonia. Covid 19 test negative Ceftriaxone IV, azithromycin IV Blood culture Sputum culture CTA to rule out PE (4) Acute hypoxemic respiratory failure Status: Acute Problem Text: Secondary to bilateral pneumonia Continue high flow oxygen Continue to monitor ABG Plan / VTE VTE Prophylaxis Ordered?: Yes IVA RAE DO May 11, 2020 15:14
[2020-05-11] MEDS ORDERED: IPRATROPIUM 0.5MG/ALBUTEROL 2.5MG INH SOL UD 3ML (DUONEB) INH SCH (16:00)
[2020-05-11] MEDS ORDERED: ISOVUE-370 76% 100ML VIAL As Ordered ONE (16:04)
--- NOTE | 2020-05-11 18:42 | REPVR ---
PROCEDURE INFORMATION: Exam: CT Angiography Chest With Contrast Exam date and time: 05/11/2020 5:54 PM Age: 59 years old Clinical indication: Shortness of breath; Additional info: Acute respiratory failure TECHNIQUE: Imaging protocol: Computed tomographic angiography of the chest with intravenous contrast. 3D rendering (Not supervised by radiologist): MIP and/or 3D reconstructed images were created by the technologist. Radiation optimization: All CT scans at this facility use at least one of these dose optimization techniques: automated exposure control; mA and/or kV adjustment per patient size (includes targeted exams where dose is matched to clinical indication); or iterative reconstruction. Contrast material: ISOVUE 370; Contrast volume: 75 ml; Contrast route: INTRAVENOUS (IV); COMPARISON: CR PORTABLE CHEST X-RAY 05/11/2020 1:16 PM FINDINGS: Pulmonary arteries: There are no pulmonary emboli. Aorta: No thoracic aortic aneurysm or dissection. Lungs: There is diffuse alveolar filling perhaps most prominent in the right upper lobe. Pleural space: There is a large right and moderate left pleural effusion. Heart: No cardiomegaly or pericardial effusion. Lymph nodes: There are primarily subcentimeter lymph nodes throughout the mediastinum although there may be multiple adjacent lymph nodes in the subcarinal posterior mediastinum. Bones/joints: No acute fracture. Soft tissues: Unremarkable. Other findings: There are no significant findings in the upper abdomen. IMPRESSION: 1. No evidence of pulmonary emboli, thoracic aortic aneurysm or dissection. 2. Diffuse alveolar filling throughout all lobes as well as large right and smaller left pleural effusions most likely due to edema however diffuse pneumonia is also within the differential. Other etiologies are less likely. Electronically signed by: Aleida Pope On 05/11/2020 18:42:28 PM
[2020-05-11 19:15] VITALS: BP 131/74
--- NOTE | 2020-05-11 20:31 | ECGEPIP ---
[facility] - ED Test Date: 2020-05-11 Pat Name: DESTINEY PENA Department: Room: 0103 Gender: Male Orthopedic Physical Therapist: poonam : 1960 Requested By: HOLLY Mistry Order Number: [id number] Reading MD: Susana Minor Measurements Intervals [place] Rate: 122 P: 67 ME: 148 QRS: 79 QRSD: 132 T: 6 QT: 327 QTc: 467 Interpretive Statements SINUS TACHYCARDIA WITH OCCASIONAL VENTRICULAR PREMATURE COMPLEXES RIGHT BUNDLE BRANCH BLOCK NO PRIOR Electronically Signed on 05-11-2020 20:31:46 EDT by Susana Minor
[2020-05-11] MEDS ORDERED: HEPARIN SOD (PORCINE) 5000UNITS/ML 1ML VIAL/SYRINGE SC SCH (21:00)
--- NOTE | 2020-05-12 07:35 | ECHO ---
DATE OF PROCEDURE: 05/11/2020 Age: 59 Gender: Male Height: 74 inches Weight: 218 pounds Body surface area: 2.26 m2 PATIENT LOCATION: Inpatient intensive care unit (ICU). REFERRING PHYSICIAN: Emanuel Harmon MD and Fab Nelson DO INDICATION: Murmur. Pulmonary edema. 2D MEASUREMENTS: RV 4.8 cm LV 5.8 cm Septum 1.2 cm Posterior wall 1.1 cm Aortic root 3.2 cm LA 4.7 cm LVEF 70% DOPPLER MEASUREMENTS: AV 0.97 msec LVOT 0.84 msec MV Difficult in light of superimposed early and late diastolic left ventricular filling with sinus tachycardia. PV 0.57 msec Pulmonary artery acceleration time 56 msec RVSP 51 mmHg IVC 2.4 cm COMMENTS: Sinus tachycardia with left bundle branch block. M-mode and two-dimensional echocardiography was performed with pulse, continuous wave, color flow, and tissue Doppler studies. Mildly dilated left ventricle with wall thickness upper limits of normal. Septal wall motion abnormality possibly related to his conduction disturbance versus right ventricular pressure overload, yet preserved global resting systolic function with hyperkinesis of other scales. Moderately dilated left atrium, but unable to comment on LV diastolic function based on the degree of severe mitral insufficiency. Moderately dilated right heart chambers with hyperkinetic wall motion and Doppler evidence of at least moderate pulmonary hypertension. Moderately dilated IVC with normal respiratory collapse in keeping with a central venous pressure upper limits of normal. Mildly dilated aortic root. Normal appearing aortic valve with adequate cusp separation. 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 Normal appearing tricuspid valve with mild insufficiency. No separate intracardiac mass or pericardial effusion. A preliminary report of this study was called directly to Dr. Harmon in the emergency room and Dr. Nelson, the hospitalist caring for the patient at this time, in the intensive care unit. In light of the observed valve findings, we have strongly recommended immediate transfer to a cardiovascular service for immediate mitral valve repair. JANET
[2020-05-12] MEDS ORDERED: cefTRIAXone SOD 1 GM in D5W MINI-BAG PLUS 50 ML IV SCH (14:00)
[2020-05-12] MEDS ORDERED: AZITHROMYCIN INJ 500 MG, VIAL MATE ADAPTER 1 EACH in D5W 250 ML IV SCH (15:00)
[2020-05-12 17:07] LABS: Lyme Disease IgG/IgM Antibodie <0.91 ISR (0.00-0.90); Lyme Disease IgM Ab Quantitati <0.80 index (0.00-0.79)
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
== END 2020-05-11 19:39 | disposition short-term general hospital (02) | DRG 720 ==
LOC: M ED 12:19 → M ED INP 14:48 → ENRESERV 15:50
PROVIDERS: ADMIT Internal Medicine; ATTEND Internal Medicine
DX: A41.9 Sepsis, unspecified organism (principal); J18.9 Pneumonia, unspecified organism; I50.9 Heart failure, unspecified; J96.01 Acute respiratory failure with hypoxia; K21.9 Gastro-esophageal reflux disease without esophagitis; N40.0 Benign prostatic hyperplasia without lower urinary tract symptoms; M62.18 Other rupture of muscle (nontraumatic), other site

== ENCOUNTER → 2020-05-25 | Outpatient (REF) | payer BC ==
[~2020-05-25] MED LIST: BETA0.0543 TOP; CLAR5TAB7 PO
[2020-05-25 17:11] LABS: INR 1.47; PROTHROMBIN TIME 18.2 SECONDS (12.5-14.3)
== END ==
LOC: M LABDRAWC 15:59
DX: Z01.812 Encounter for preprocedural laboratory examination (principal)

== ENCOUNTER → 2020-05-28 | Outpatient (REF) | payer BC ==
[2020-05-28 16:16] LABS: INR 1.71; PROTHROMBIN TIME 20.5 SECONDS (12.5-14.3)
== END ==
LOC: M LABDRAWC 15:46
PROVIDERS: ATTEND Internal Medicine Cardiovascular Disease
DX: I47.1 Supraventricular tachycardia (principal); I48.0 Paroxysmal atrial fibrillation; I34.0 Nonrheumatic mitral (valve) insufficiency

== ENCOUNTER → 2020-06-01 | Outpatient (REF) | payer BC ==
[2020-06-01 16:32] LABS: BASO # 0.1 10^3/uL (0.0-0.2); BASO % 0.9 % (0.0-1.0); EOS # 0.3 10^3/uL (0.0-0.5); EOS % 2.8 % (0.0-3.0); HEMATOCRIT 30.9 % (42.0-52.0); LYMPH # 1.6 10^3/uL (1.5-5.0); LYMPH % 18.4 % (24.0-44.0); MEAN CORPUSCULAR HEMOGLOBIN 25.6 pg (27.0-33.0); MEAN CORPUSCULAR HGB CONC 29.1 g/dl (32.0-36.5); MEAN CORPUSCULAR VOLUME 87.8 fl (80.0-96.0); MONO % 11.1 % (0.0-5.0); NEUTROPHILS # 5.7 10^3/uL (1.5-8.5); NEUTROPHILS % 65.2 % (36.0-66.0); PLATELET COUNT, AUTOMATED 535 10^3/uL (150-450); RED BLOOD COUNT 3.52 10^6/uL (4.30-6.10); WHITE BLOOD COUNT 8.8 10^3/uL (4.0-10.0)
[2020-06-01 16:59] LABS: ALBUMIN 2.6 GM/DL (3.2-5.2); BLOOD UREA NITROGEN 14 MG/DL (7-18); CALCIUM LEVEL 8.8 MG/DL (8.5-10.1); CARBON DIOXIDE LEVEL 25 MEQ/L (21-32); CHLORIDE LEVEL 108 MEQ/L (98-107); CREATININE FOR GFR 0.97 MG/DL (0.70-1.30); GLOMERULAR FILTRATION RATE > 60.0 (>56); GLUCOSE, FASTING 102 MG/DL (70-100); MAGNESIUM LEVEL 2.2 MG/DL (1.8-2.4); NT-PRO BNP 1192 PG/ML (<125); PHOSPHORUS LEVEL 3.5 MG/DL (2.5-4.9); POTASSIUM SERUM 4.6 MEQ/L (3.5-5.1); SODIUM LEVEL 139 MEQ/L (136-145)
== END ==
LOC: M LABDRAWC 15:49
PROVIDERS: ATTEND Internal Medicine Cardiovascular Disease
DX: I50.9 Heart failure, unspecified (principal)

== ENCOUNTER → 2020-06-04 | Outpatient (REF) | payer BC ==
[2020-06-04 12:49] LABS: INR 3.75; PROTHROMBIN TIME 37.9 SECONDS (12.5-14.3)
== END ==
LOC: M LABDRAWC 11:22
PROVIDERS: ATTEND Physician Assistant
DX: I47.1 Supraventricular tachycardia (principal); I48.0 Paroxysmal atrial fibrillation; I34.0 Nonrheumatic mitral (valve) insufficiency

== ENCOUNTER → 2020-06-08 | Outpatient (REF) | payer BC ==
[2020-06-08 12:03] LABS: INR 2.77; PROTHROMBIN TIME 29.9 SECONDS (12.5-14.3)
== END ==
LOC: M LABDRAWC 10:57
PROVIDERS: ATTEND Internal Medicine Cardiovascular Disease
DX: I47.1 Supraventricular tachycardia (principal); I48.0 Paroxysmal atrial fibrillation; I34.0 Nonrheumatic mitral (valve) insufficiency

== ENCOUNTER → 2020-06-22 | Outpatient (REF) | payer BC ==
[2020-06-22 12:08] LABS: INR 1.63; PROTHROMBIN TIME 19.7 SECONDS (12.5-14.3)
== END ==
LOC: M LABDRAWC 11:30
PROVIDERS: ATTEND Physician Assistant
DX: I47.1 Supraventricular tachycardia (principal); I48.0 Paroxysmal atrial fibrillation; I34.0 Nonrheumatic mitral (valve) insufficiency

== ENCOUNTER → 2020-07-15 | Outpatient (REF) | payer BC | LOC: M SFHCCLAY 13:37 | PROVIDERS: ATTEND Physician Assistant | DX: L03.116 Cellulitis of left lower limb (principal) ==

== ENCOUNTER → 2020-07-20 | Outpatient (REF) | payer BC ==
[2020-07-20 18:26] LABS: INR 1.62; PROTHROMBIN TIME 19.6 SECONDS (12.5-14.3)
== END ==
LOC: M LABDRAWC 15:48
PROVIDERS: ATTEND Physician Assistant
DX: I47.1 Supraventricular tachycardia (principal); I48.0 Paroxysmal atrial fibrillation; I34.0 Nonrheumatic mitral (valve) insufficiency

== ENCOUNTER → 2020-08-04 | Outpatient (REF) | payer BC ==
[2020-08-04 16:41] LABS: INR 1.65; PROTHROMBIN TIME 19.9 SECONDS (12.5-14.3)
== END ==
LOC: M LABDRAWC 15:36
PROVIDERS: ATTEND Physician Assistant
DX: I47.1 Supraventricular tachycardia (principal); I48.0 Paroxysmal atrial fibrillation; I34.0 Nonrheumatic mitral (valve) insufficiency

== ENCOUNTER → 2020-08-19 | Outpatient (REF) | payer BC ==
[2020-08-19 16:31] LABS: INR 2.09; PROTHROMBIN TIME 23.9 SECONDS (12.5-14.3)
== END ==
LOC: M LABDRAWC 15:43
PROVIDERS: ATTEND Physician Assistant
DX: I47.1 Supraventricular tachycardia (principal); I48.0 Paroxysmal atrial fibrillation; I34.0 Nonrheumatic mitral (valve) insufficiency

== ENCOUNTER → 2020-09-17 | Outpatient (REF) | payer BC ==
[2020-09-17 18:25] LABS: INR 2.07; PROTHROMBIN TIME 23.8 SECONDS (12.5-14.3)
== END ==
LOC: M LABDRAWC 15:49
PROVIDERS: ATTEND Physician Assistant
DX: I47.1 Supraventricular tachycardia (principal); I48.0 Paroxysmal atrial fibrillation; I34.0 Nonrheumatic mitral (valve) insufficiency

== ENCOUNTER → 2020-10-15 | Outpatient (REF) | payer BC ==
[2020-10-15 16:29] LABS: BASO % 0.5 % (0.0-1.0); EOS # 0.5 10^3/uL (0.0-0.5); EOS % 5.4 % (0.0-3.0); HEMOGLOBIN 14.9 g/dl (13.5-17.5); LYMPH # 2.4 10^3/uL (1.5-5.0); LYMPH % 27.9 % (24.0-44.0); MEAN CORPUSCULAR HEMOGLOBIN 25.6 pg (27.0-33.0); MEAN CORPUSCULAR VOLUME 82.5 fl (80.0-96.0); MONO # 0.9 10^3/uL (0.0-0.8); MONO % 10.2 % (2.0-8.0); NEUTROPHILS # 4.8 10^3/uL (1.5-8.5); NEUTROPHILS % 55.4 % (36.0-66.0); PLATELET COUNT, AUTOMATED 338 10^3/uL (150-450); RED BLOOD COUNT 5.82 10^6/uL (4.30-6.10); WHITE BLOOD COUNT 8.7 10^3/uL (4.0-10.0)
[2020-10-15 16:47] LABS: INR 2.04; PROTHROMBIN TIME 23.5 SECONDS (12.5-14.3)
[2020-10-15 17:02] LABS: ALBUMIN 3.7 GM/DL (3.2-5.2); ALT/SGPT 26 U/L (12-78); BILIRUBIN,TOTAL 0.4 MG/DL (0.2-1.0); BLOOD UREA NITROGEN 20 MG/DL (7-18); CALCIUM LEVEL 8.9 MG/DL (8.5-10.1); CARBON DIOXIDE LEVEL 28 MEQ/L (21-32); CHLORIDE LEVEL 108 MEQ/L (98-107); CREATININE FOR GFR 1.07 MG/DL (0.70-1.30); GLOMERULAR FILTRATION RATE > 60.0 (>56); GLUCOSE, FASTING 82 MG/DL (70-100); POTASSIUM SERUM 4.5 MEQ/L (3.5-5.1); SODIUM LEVEL 140 MEQ/L (136-145); TOTAL PROTEIN 7.7 GM/DL (6.4-8.2)
== END ==
LOC: M LABDRAWC 15:43
PROVIDERS: ATTEND Internal Medicine Cardiovascular Disease
DX: I47.1 Supraventricular tachycardia (principal); I48.0 Paroxysmal atrial fibrillation; I34.0 Nonrheumatic mitral (valve) insufficiency

== ENCOUNTER → 2020-10-28 | Outpatient (CLI) | payer BC ==
--- NOTE | 2020-10-28 10:20 | REP ---
INDICATION: UNSPECIFIED VISUAL DISTURBANCE. COMPARISON: None. TECHNIQUE: Helical scanning is acquired. 5 mm axial images were reformatted. Coronal MPR images were generated. FINDINGS: Bone window settings demonstrate an intact bony calvarium. There is no evidence of skull fracture or incidental bony calvarial lesion. No intraorbital abnormality is seen. On soft tissue window setting images; the lateral, third, and fourth ventricles are normal in size and position. Harmon-white differentiation pattern is normal above and below the tentorium. There is moderate mucosal thickening affecting the ethmoid sinuses bilaterally. Mild mucosal thickening is seen in the sphenoid air cells bilaterally. There is a 3 mm hyperdense nodular focus in the right inferior and medial frontal lobe of uncertain significance. Possible small hyperdense nodule. No other intracranial lesion is appreciated. IMPRESSION: Bilateral ethmoid and sphenoid sinus mucosal thickening. 3 mm hyperdense nodular focus in the right inferior medial frontal lobe. Uncertain significance. Recommend MRI scanning of the brain without and with intravenous contrast for further evaluation. Otherwise negative brain CT.. <Electronically signed by Hunter Pacheco > 10/28/20 [id number]
== END ==
LOC: M RAD 09:04
PROVIDERS: ATTEND Nurse Practitioner Family
DX: H53.9 Unspecified visual disturbance (principal)

== ENCOUNTER → 2020-10-28 | Outpatient (CLI) | payer BC ==
[2020-10-28 10:31] LABS: BASO # 0.1 10^3/uL (0.0-0.2); BASO % 0.6 % (0.0-1.0); EOS # 0.5 10^3/uL (0.0-0.5); EOS % 5.1 % (0.0-3.0); HEMOGLOBIN 15.2 g/dl (13.5-17.5); LYMPH # 2.3 10^3/uL (1.5-5.0); LYMPH % 24.2 % (24.0-44.0); MEAN CORPUSCULAR HEMOGLOBIN 26.9 pg (27.0-33.0); MEAN CORPUSCULAR HGB CONC 32.3 g/dl (32.0-36.5); MONO % 10.7 % (2.0-8.0); NEUTROPHILS # 5.6 10^3/uL (1.5-8.5); NEUTROPHILS % 58.8 % (36.0-66.0); PLATELET COUNT, AUTOMATED 297 10^3/uL (150-450); RED BLOOD COUNT 5.66 10^6/uL (4.30-6.10); WHITE BLOOD COUNT 9.5 10^3/uL (4.0-10.0)
== END ==
LOC: M LAB 09:14
PROVIDERS: ATTEND Internal Medicine Cardiovascular Disease
DX: I34.0 Nonrheumatic mitral (valve) insufficiency (principal)

== ENCOUNTER → 2020-11-12 | Outpatient (REF) | payer BC ==
[2020-11-12 12:09] LABS: INR 2.86; PROTHROMBIN TIME 30.6 SECONDS (12.5-14.3)
== END ==
LOC: M LABDRAWC 11:10
PROVIDERS: ATTEND Internal Medicine Cardiovascular Disease
DX: I47.1 Supraventricular tachycardia (principal); I48.0 Paroxysmal atrial fibrillation; I34.0 Nonrheumatic mitral (valve) insufficiency

== ENCOUNTER → 2020-11-20 | Outpatient (CLI) | payer BC ==
--- NOTE | 2020-11-20 11:13 | REPVR ---
PROCEDURE INFORMATION: Exam: MR Head Without and With Contrast Exam date and time: 11/20/2020 10:54 AM Age: 60 years old Clinical indication: Abnormal findings; Abnormal radiologic findings of head/skull; Intracranial mass/space-occupying lesion; Patient HX: PT states left eye vision issues; Additional info: 3mm lesion brain f/u abn imag CT TECHNIQUE: Imaging protocol: MR of the head without and with intravenous contrast. Contrast material: PROHANCE; Contrast volume: 19 ml; Contrast route: INTRAVENOUS (IV); COMPARISON: CT Head without contrast 10/28/2020 9:27 AM FINDINGS: Brain: There are punctate scattered microhemorrhages in superior left frontal lobe, right precentral gyrus, periventricular region adjacent to left lateral ventricle, right occipital lobe, bilateral medial thalamus, right posterior temporal lobe, left inferior anterior and posterior temporal lobe, bilateral jenise, and left paramedian cerebellum. These are most commonly related to chronic hypertension. In region of hyperdense nodule on CT in inferior medial frontal lobe, there rounded 3.5 mm area nonacute hemorrhage. Postcontrast, this shows a small linear structure extending posteriorly and medially. 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 There is no surrounding edema. No additional areas parenchymal or leptomeningeal contrast enhancement. There are few scattered cerebral white matter changes which although nonspecific are likely minimal microvascular disease. Diffusion images are normal. No evidence of acute infarction. No evidence of acute intracranial hemorrhage. No extra-axial fluid collections. Ventricles and cerebrospinal fluid spaces are normal in size and configuration for the patient's age. There is no evidence of mass-effect or midline shift. Flow voids of the [place] and major cerebral vascular structures appear intact. Craniocervical junction appears unremarkable, with normal position of cerebellar tonsils and no evidence of Chiari I malformation. Cerebral ventricles: Normal. No ventriculomegaly. Bones/joints: Unremarkable as visualized. Paranasal sinuses: There is mucosal thickening throughout paranasal sinuses. There is right maxillary sinus retention polyp. Mastoid air cells: No significant mastoid effusion. Orbital cavity: Unremarkable. Soft tissues: Unremarkable as visualized. IMPRESSION: 1. Small hyperdense nodule on CT in right inferior medial frontal lobe is consistent with a small cavernous malformation and has an associated developmental venous anomaly. 2. Few scattered chronic microhemorrhages most commonly sequela of hypertension and correlate clinically. 3. No acute infarct, acute hemorrhage, or enhancing neoplasm. Electronically signed by: Isadora Dahl On 11/20/2020 11:13:24 AM
== END ==
LOC: M RAD 08:37
PROVIDERS: ATTEND Nurse Practitioner Family
DX: G93.9 Disorder of brain, unspecified (principal)

== ENCOUNTER → 2020-12-14 | Outpatient (REF) | payer BC ==
[2020-12-14 17:48] LABS: INR 2.3; PROTHROMBIN TIME 25.8 SECONDS (12.5-14.3)
== END ==
LOC: M LABDRAWC 15:46
PROVIDERS: ATTEND Physician Assistant
DX: I47.1 Supraventricular tachycardia (principal); I48.0 Paroxysmal atrial fibrillation; I34.0 Nonrheumatic mitral (valve) insufficiency

== ENCOUNTER → 2021-01-11 | Outpatient (REF) | payer BC ==
[2021-01-11 18:32] LABS: BASO # 0.1 10^3/uL (0.0-0.2); BASO % 0.5 % (0.0-1.0); EOS # 0.6 10^3/uL (0.0-0.5); EOS % 5.1 % (0.0-3.0); HEMATOCRIT 49.1 % (42.0-52.0); HEMOGLOBIN 15.4 g/dl (13.5-17.5); LYMPH # 2.5 10^3/uL (1.5-5.0); MEAN CORPUSCULAR HEMOGLOBIN 28.7 pg (27.0-33.0); MEAN CORPUSCULAR HGB CONC 31.4 g/dl (32.0-36.5); MEAN CORPUSCULAR VOLUME 91.6 fl (80.0-96.0); MONO # 1.1 10^3/uL (0.0-0.8); MONO % 10.4 % (2.0-8.0); NEUTROPHILS # 6.5 10^3/uL (1.5-8.5); NEUTROPHILS % 60.4 % (36.0-66.0); PLATELET COUNT, AUTOMATED 328 10^3/uL (150-450); RED BLOOD COUNT 5.36 10^6/uL (4.30-6.10); WHITE BLOOD COUNT 10.8 10^3/uL (4.0-10.0)
[2021-01-11 19:04] LABS: ALBUMIN 3.6 GM/DL (3.2-5.2); ALT/SGPT 21 U/L (12-78); BILIRUBIN,TOTAL 0.3 MG/DL (0.2-1.0); BLOOD UREA NITROGEN 20 MG/DL (7-18); CALCIUM LEVEL 9.1 MG/DL (8.5-10.1); CARBON DIOXIDE LEVEL 28 MEQ/L (21-32); CHLORIDE LEVEL 108 MEQ/L (98-107); CREATININE FOR GFR 0.93 MG/DL (0.70-1.30); FREE T4 1.14 NG/DL (0.76-1.46); GLOMERULAR FILTRATION RATE > 60.0 (>56); GLUCOSE, FASTING 75 MG/DL (70-100); POTASSIUM SERUM 5.1 MEQ/L (3.5-5.1); RHEUMATOID FACTOR QUANT < 10.0 IU/ML (<15.0); SODIUM LEVEL 142 MEQ/L (136-145); TOTAL PROTEIN 7.7 GM/DL (6.4-8.2)
[2021-01-13 20:08] LABS: ANA (HEP2) Positive (.)
== END ==
LOC: M SFHCCLAY 10:02
PROVIDERS: ATTEND Nurse Practitioner Family
DX: K21.9 Gastro-esophageal reflux disease without esophagitis (principal); I48.19 Other persistent atrial fibrillation; H53.9 Unspecified visual disturbance; Z98.890 Other specified postprocedural states; M25.50 Pain in unspecified joint

== ENCOUNTER → 2021-01-11 | Outpatient (REF) | payer BC ==
[2021-01-11 18:42] LABS: INR 1.99
== END ==
LOC: M LABDRAWC 15:49
PROVIDERS: ATTEND Physician Assistant
DX: I47.1 Supraventricular tachycardia (principal); I48.0 Paroxysmal atrial fibrillation; I34.0 Nonrheumatic mitral (valve) insufficiency

== ENCOUNTER → 2021-02-02 | Outpatient (REF) | payer BC ==
[2021-02-02 16:40] LABS: INR 2.39; PROTHROMBIN TIME 26.6 SECONDS (12.5-14.3)
== END ==
LOC: M LABDRAWC 15:45
PROVIDERS: ATTEND Physician Assistant
DX: I47.1 Supraventricular tachycardia (principal); I48.0 Paroxysmal atrial fibrillation; I34.0 Nonrheumatic mitral (valve) insufficiency

== ENCOUNTER → 2021-03-05 | Outpatient (REF) | payer BC ==
[2021-03-05 16:11] LABS: BASO # 0.1 10^3/uL (0.0-0.2); BASO % 0.5 % (0.0-1.0); EOS # 0.5 10^3/uL (0.0-0.5); EOS % 4.4 % (0.0-3.0); HEMATOCRIT 45.8 % (42.0-52.0); HEMOGLOBIN 14.7 g/dl (13.5-17.5); LYMPH # 2.2 10^3/uL (1.5-5.0); LYMPH % 21.5 % (24.0-44.0); MEAN CORPUSCULAR HEMOGLOBIN 28.6 pg (27.0-33.0); MEAN CORPUSCULAR HGB CONC 32.1 g/dl (32.0-36.5); MEAN CORPUSCULAR VOLUME 89.1 fl (80.0-96.0); MONO % 9.7 % (2.0-8.0); NEUTROPHILS # 6.5 10^3/uL (1.5-8.5); NEUTROPHILS % 63.4 % (36.0-66.0); PLATELET COUNT, AUTOMATED 319 10^3/uL (150-450); RED BLOOD COUNT 5.14 10^6/uL (4.30-6.10); WHITE BLOOD COUNT 10.2 10^3/uL (4.0-10.0)
[2021-03-05 16:49] LABS: ALBUMIN 3.9 GM/DL (3.2-5.2); ALT/SGPT 29 U/L (12-78); BILIRUBIN,TOTAL 0.6 MG/DL (0.2-1.0); BLOOD UREA NITROGEN 17 MG/DL (7-18); CALCIUM LEVEL 8.9 MG/DL (8.5-10.1); CARBON DIOXIDE LEVEL 27 MEQ/L (21-32); CHLORIDE LEVEL 108 MEQ/L (98-107); CREATININE FOR GFR 1.19 MG/DL (0.70-1.30); GLOMERULAR FILTRATION RATE > 60.0 (>56); GLUCOSE, FASTING 105 MG/DL (70-100); POTASSIUM SERUM 4.3 MEQ/L (3.5-5.1); SODIUM LEVEL 140 MEQ/L (136-145); TOTAL PROTEIN 7.6 GM/DL (6.4-8.2)
== END ==
LOC: M LABDRAWC 15:49
PROVIDERS: ATTEND Internal Medicine Cardiovascular Disease
DX: I48.0 Paroxysmal atrial fibrillation (principal); I34.0 Nonrheumatic mitral (valve) insufficiency

== ENCOUNTER → 2021-07-20 | Outpatient (REF) | payer BC ==
[2021-07-20 11:43] LABS: BASO # 0.1 10^3/uL (0.0-0.2); BASO % 0.5 % (0.0-1.0); EOS # 0.3 10^3/uL (0.0-0.5); EOS % 3.1 % (0.0-3.0); HEMATOCRIT 49.4 % (42.0-52.0); HEMOGLOBIN 15.4 g/dl (13.5-17.5); LYMPH # 2.2 10^3/uL (1.5-5.0); LYMPH % 20.1 % (24.0-44.0); MEAN CORPUSCULAR HEMOGLOBIN 27.8 pg (27.0-33.0); MEAN CORPUSCULAR HGB CONC 31.2 g/dl (32.0-36.5); MEAN CORPUSCULAR VOLUME 89.2 fl (80.0-96.0); MONO # 1.3 10^3/uL (0.0-0.8); NEUTROPHILS % 63.8 % (36.0-66.0); PLATELET COUNT, AUTOMATED 316 10^3/uL (150-450); RED BLOOD COUNT 5.54 10^6/uL (4.30-6.10)
[2021-07-20 11:49] LABS: APPEARANCE, URINE CLEAR (CLEAR); BACTERIA, URINE AUTO NEGATIVE (NEGATIVE); BILIRUBIN, URINE AUTO NEGATIVE (NEGATIVE); BLOOD, URINE BLOOD NEGATIVE (NEGATIVE); COLOR, URINE YELLOW (YELLOW); GLUCOSE, URINE (UA) AUTO NEGATIVE (NEGATIVE); KETONE, URINE AUTO NEGATIVE (NEGATIVE); LEUKOCYTE ESTERASE, URINE AUTO NEGATIVE (NEGATIVE); MUCUS, URINE SMALL (NEGATIVE); NITRITE, URINE AUTO NEGATIVE (NEGATIVE); PROTEIN, URINE AUTO NEGATIVE (NEGATIVE); RBC, URINE AUTO 0 /HPF (0-3); SPECIFIC GRAVITY URINE AUTO 1.015 (1.002-1.035); SQUAMOUS EPITHELIAL CELL UR AU 0 /HPF (0-6); UROBILINOGEN, URINE AUTO 0.2 mg/dL (0.0-2.0); WBC, URINE AUTO 0 /HPF (0-3)
[2021-07-20 11:51] LABS: CREATININE,RANDOM URINE 79.8 MG/DL; TOTAL PROTEIN,RANDOM URINE < 5.0 MG/DL (0.0-12.0)
[2021-07-20 12:12] LABS: ERYTHROCYTE SEDIMENTATION RATE 16 mm/hr (0-20)
[2021-07-20 12:20] LABS: ALBUMIN 3.8 GM/DL (3.2-5.2); ALT/SGPT 28 U/L (12-78); BILIRUBIN,TOTAL 0.3 MG/DL (0.2-1.0); BLOOD UREA NITROGEN 29 MG/DL (7-18); C REACTIVE PROTEIN QUANTITATIV 0.34 MG/DL (0.00-0.30); CALCIUM LEVEL 9.7 MG/DL (8.5-10.1); CARBON DIOXIDE LEVEL 30 MEQ/L (21-32); CHLORIDE LEVEL 111 MEQ/L (98-107); COMPLEMENT C3 149 MG/DL (90-180); COMPLEMENT C4 26 MG/DL (10-40); CREATININE FOR GFR 1.11 MG/DL (0.70-1.30); GLOMERULAR FILTRATION RATE > 60.0 (>56); GLUCOSE, FASTING 82 MG/DL (70-100); POTASSIUM SERUM 4.5 MEQ/L (3.5-5.1); SODIUM LEVEL 143 MEQ/L (136-145); TOTAL PROTEIN 7.6 GM/DL (6.4-8.2)
== END ==
LOC: M SFHCRHEU 08:31
PROVIDERS: ATTEND Internal Medicine Rheumatology
DX: R76.8 Other specified abnormal immunological findings in serum (principal); M25.50 Pain in unspecified joint

== ENCOUNTER → 2021-10-19 | Outpatient (REF) | payer BC ==
[2021-10-19 17:07] LABS: BASO # 0.1 10^3/uL (0.0-0.2); BASO % 0.5 % (0.0-1.0); EOS # 0.3 10^3/uL (0.0-0.5); EOS % 3.2 % (0.0-3.0); HEMATOCRIT 46.6 % (42.0-52.0); HEMOGLOBIN 15.1 g/dl (13.5-17.5); LYMPH # 2.3 10^3/uL (1.5-5.0); LYMPH % 21.4 % (24.0-44.0); MEAN CORPUSCULAR HEMOGLOBIN 28.5 pg (27.0-33.0); MEAN CORPUSCULAR HGB CONC 32.4 g/dl (32.0-36.5); MEAN CORPUSCULAR VOLUME 88.1 fl (80.0-96.0); MONO # 1.1 10^3/uL (0.0-0.8); MONO % 10.7 % (2.0-8.0); NEUTROPHILS # 6.7 10^3/uL (1.5-8.5); NEUTROPHILS % 63.5 % (36.0-66.0); PLATELET COUNT, AUTOMATED 343 10^3/uL (150-450); RED BLOOD COUNT 5.29 10^6/uL (4.30-6.10); WHITE BLOOD COUNT 10.6 10^3/uL (4.0-10.0)
[2021-10-19 17:49] LABS: ALBUMIN 3.5 GM/DL (3.2-5.2); ALT/SGPT 32 U/L (12-78); BILIRUBIN,TOTAL 0.4 MG/DL (0.2-1.0); BLOOD UREA NITROGEN 24 MG/DL (7-18); CALCIUM LEVEL 9.2 MG/DL (8.8-10.2); CARBON DIOXIDE LEVEL 26 MEQ/L (21-32); CHLORIDE LEVEL 109 MEQ/L (98-107); CREATININE FOR GFR 1.05 MG/DL (0.70-1.30); GLOMERULAR FILTRATION RATE > 60.0 (>49); GLUCOSE, FASTING 88 MG/DL (70-100); NT-PRO BNP 230 PG/ML (<125); POTASSIUM SERUM 4.7 MEQ/L (3.5-5.1); SODIUM LEVEL 142 MEQ/L (136-145); TOTAL PROTEIN 7.5 GM/DL (6.4-8.2)
== END ==
LOC: M LABDRAWC 15:47
PROVIDERS: ATTEND Internal Medicine Cardiovascular Disease
DX: I48.0 Paroxysmal atrial fibrillation (principal); I34.0 Nonrheumatic mitral (valve) insufficiency; I50.32 Chronic diastolic (congestive) heart failure

== ENCOUNTER → 2022-03-14 | Outpatient (REF) | payer BC ==
[2022-03-14 17:53] LABS: BASO # 0.1 10^3/uL (0.0-0.2); BASO % 0.5 % (0.0-1.0); EOS # 0.7 10^3/uL (0.0-0.5); EOS % 5.3 % (0.0-3.0); HEMOGLOBIN 14.7 g/dl (13.5-17.5); LYMPH # 3.2 10^3/uL (1.5-5.0); LYMPH % 25.9 % (24.0-44.0); MEAN CORPUSCULAR HEMOGLOBIN 27.9 pg (27.0-33.0); MEAN CORPUSCULAR VOLUME 87.3 fl (80.0-96.0); MONO # 1.1 10^3/uL (0.0-0.8); MONO % 9.4 % (2.0-8.0); NEUTROPHILS # 7.1 10^3/uL (1.5-8.5); NEUTROPHILS % 58.6 % (36.0-66.0); PLATELET COUNT, AUTOMATED 275 10^3/uL (150-450); RED BLOOD COUNT 5.27 10^6/uL (4.30-6.10); WHITE BLOOD COUNT 12.2 10^3/uL (4.0-10.0)
[2022-03-14 17:58] LABS: AMORPHOUS SEDIMENT SMALL (NEGATIVE); APPEARANCE, URINE TURBID (CLEAR); BACTERIA, URINE AUTO NEGATIVE (NEGATIVE); BILIRUBIN, URINE AUTO NEGATIVE (NEGATIVE); BLOOD, URINE BLOOD NEGATIVE (NEGATIVE); COLOR, URINE YELLOW (YELLOW); GLUCOSE, URINE (UA) AUTO NEGATIVE (NEGATIVE); KETONE, URINE AUTO NEGATIVE (NEGATIVE); LEUKOCYTE ESTERASE, URINE AUTO NEGATIVE (NEGATIVE); MUCUS, URINE LARGE (NEGATIVE); NITRITE, URINE AUTO NEGATIVE (NEGATIVE); PROTEIN, URINE AUTO NEGATIVE (NEGATIVE); RBC, URINE AUTO 0 /HPF (0-3); SPECIFIC GRAVITY URINE AUTO 1.028 (1.002-1.035); SQUAMOUS EPITHELIAL CELL UR AU 0 /HPF (0-6); WBC, URINE AUTO 0 /HPF (0-3)
[2022-03-14 19:19] LABS: ALBUMIN 3.5 GM/DL (3.2-5.2); ALT/SGPT 18 IU/L (0-32); BILIRUBIN,TOTAL 0.5 MG/DL (0.2-1.0); BLOOD UREA NITROGEN 22 MG/DL (7-18); CALCIUM LEVEL 9.1 MG/DL (8.8-10.2); CARBON DIOXIDE LEVEL 24 mmol/L (20-29); CHLORIDE LEVEL 111 MEQ/L (98-107); CREATININE FOR GFR 1.09 MG/DL (0.70-1.30); GLOMERULAR FILTRATION RATE > 60.0 (>49); GLUCOSE, FASTING 72 MG/DL (70-100); POTASSIUM SERUM 4.5 MEQ/L (3.5-5.1); SODIUM LEVEL 142 MEQ/L (136-145); TOTAL PROTEIN 7.1 GM/DL (6.4-8.2)
[2022-03-14 19:20] LABS: C REACTIVE PROTEIN QUANTITATIV 0.46 MG/DL (0.00-0.30); COMPLEMENT C3 157 MG/DL (90-180); COMPLEMENT C4 30.5 MG/DL (10-40)
[2022-03-14 19:37] LABS: ERYTHROCYTE SEDIMENTATION RATE 12 mm/hr (0-20)
[2022-03-14 22:22] LABS: TOTAL PROTEIN,RANDOM URINE 23.9 MG/DL (0.0-12.0)
== END ==
LOC: M SFHCLERA 10:16
PROVIDERS: ATTEND Nurse Practitioner Family
DX: R76.8 Other specified abnormal immunological findings in serum (principal); M25.50 Pain in unspecified joint; R21 Rash and other nonspecific skin eruption

== ENCOUNTER → 2022-06-29 | Outpatient (CLI) | payer BC ==
[2022-06-29 13:35] LABS: BASO # 0.1 10^3/uL (0.0-0.2); BASO % 0.4 % (0.0-1.0); EOS # 0.4 10^3/uL (0.0-0.5); EOS % 3.7 % (0.0-3.0); HEMATOCRIT 51.6 % (42.0-52.0); HEMOGLOBIN 16.2 g/dl (13.5-17.5); LYMPH % 17.3 % (24.0-44.0); MEAN CORPUSCULAR HEMOGLOBIN 28.4 pg (27.0-33.0); MEAN CORPUSCULAR HGB CONC 31.4 g/dl (32.0-36.5); MEAN CORPUSCULAR VOLUME 90.4 fl (80.0-96.0); MONO # 1.1 10^3/uL (0.0-0.8); MONO % 9.3 % (2.0-8.0); NEUTROPHILS # 8.1 10^3/uL (1.5-8.5); NEUTROPHILS % 68.9 % (36.0-66.0); PLATELET COUNT, AUTOMATED 329 10^3/uL (150-450); RED BLOOD COUNT 5.71 10^6/uL (4.30-6.10); WHITE BLOOD COUNT 11.8 10^3/uL (4.0-10.0)
[2022-06-29 14:35] LABS: ALBUMIN 3.7 GM/DL (3.2-5.2); ALT/SGPT 28 U/L (12-78); BILIRUBIN,TOTAL 0.6 MG/DL (0.2-1.0); BLOOD UREA NITROGEN 25 MG/DL (7-18); CALCIUM LEVEL 9.2 MG/DL (8.8-10.2); CARBON DIOXIDE LEVEL 28 MEQ/L (21-32); CHLORIDE LEVEL 105 MEQ/L (98-107); CREATININE FOR GFR 0.98 MG/DL (0.70-1.30); GLOMERULAR FILTRATION RATE > 60.0 (>49); GLUCOSE, FASTING 75 MG/DL (70-100); POTASSIUM SERUM 4.9 MEQ/L (3.5-5.1); SODIUM LEVEL 141 MEQ/L (136-145); TOTAL PROTEIN 7.6 GM/DL (6.4-8.2)
== END ==
LOC: M WUC 10:29
PROVIDERS: ATTEND Internal Medicine Cardiovascular Disease
DX: I48.0 Paroxysmal atrial fibrillation (principal)

== ENCOUNTER → 2023-02-03 | Outpatient (CLI) | payer MEDICARE, OTHER | LOC: M WUC 10:57 | PROVIDERS: ATTEND Internal Medicine Cardiovascular Disease | DX: I48.0 Paroxysmal atrial fibrillation (principal); I34.0 Nonrheumatic mitral (valve) insufficiency; I77.810 Thoracic aortic ectasia ==

== ENCOUNTER → 2023-06-21 | Outpatient (REF) | payer OTHER ==
[2023-06-21 18:31] LABS: BASO # 0.1 10^3/uL (0.0-0.2); BASO % 0.5 % (0.0-1.0); EOS # 0.7 10^3/uL (0.0-0.5); EOS % 6.8 % (0.0-3.0); HEMOGLOBIN 15.3 g/dl (13.5-17.5); LYMPH # 2.4 10^3/uL (1.5-5.0); LYMPH % 25.1 % (24.0-44.0); MEAN CORPUSCULAR HEMOGLOBIN 28.3 pg (27.0-33.0); MEAN CORPUSCULAR HGB CONC 31.9 g/dl (32.0-36.5); MEAN CORPUSCULAR VOLUME 88.9 fl (80.0-96.0); MONO # 1.1 10^3/uL (0.0-0.8); MONO % 11.6 % (2.0-8.0); NEUTROPHILS # 5.3 10^3/uL (1.5-8.5); NEUTROPHILS % 55.4 % (36.0-66.0); PLATELET COUNT, AUTOMATED 280 10^3/uL (150-450); WHITE BLOOD COUNT 9.6 10^3/uL (4.0-10.0)
[2023-06-21 18:52] LABS: ALBUMIN 3.4 G/DL (3.2-5.2); ALKALINE PHOSPHATASE 125 U/L (46-116); ALT/SGPT 22 U/L (7.0-40); AST/SGOT 19 U/L (<34); BILIRUBIN,TOTAL 0.4 MG/DL (0.3-1.2); BLOOD UREA NITROGEN 21 MG/DL (9-23); CALCIUM LEVEL 9.2 MG/DL (8.3-10.6); CARBON DIOXIDE LEVEL 31 MMOL/L (20-31); CHLORIDE LEVEL 106 MMOL/L (98-107); CREATININE FOR GFR 0.99 MG/DL (0.70-1.30); GLOMERULAR FILTRATION RATE > 60.0 (>49); GLUCOSE, FASTING 78 MG/DL (74-106); POTASSIUM SERUM 5.6 MMOL/L (3.5-5.1); SODIUM LEVEL 143 MMOL/L (136-145); TOTAL PROTEIN 7.3 G/DL (5.7-8.2)
[2023-06-21 18:56] LABS: THYROID STIMULATING HORMONE 1.612 uIU/ML (0.55-4.78)
== END ==
LOC: M LABDRAWC 17:14
PROVIDERS: ATTEND Internal Medicine Cardiovascular Disease
DX: I48.0 Paroxysmal atrial fibrillation (principal); I34.0 Nonrheumatic mitral (valve) insufficiency

== ENCOUNTER → 2024-01-11 | Outpatient (REF) | payer OTHER ==
[2024-01-11 12:02] LABS: BASO % 0.5 % (0.0-1.0); EOS # 0.3 10^3/uL (0.0-0.5); HEMATOCRIT 47.1 % (42.0-52.0); LYMPH # 1.7 10^3/uL (1.5-5.0); LYMPH % 19.6 % (24.0-44.0); MEAN CORPUSCULAR HGB CONC 31.8 g/dl (32.0-36.5); MEAN CORPUSCULAR VOLUME 90.9 fl (80.0-96.0); MONO # 1.1 10^3/uL (0.0-0.8); MONO % 12.4 % (2.0-8.0); NEUTROPHILS # 5.4 10^3/uL (1.5-8.5); PLATELET COUNT, AUTOMATED 257 10^3/uL (150-450); RED BLOOD COUNT 5.18 10^6/uL (4.30-6.10); WHITE BLOOD COUNT 8.5 10^3/uL (4.0-10.0)
[2024-01-11 12:16] LABS: ALBUMIN 3.5 G/DL (3.2-5.2); ALKALINE PHOSPHATASE 123 U/L (46-116); ALT/SGPT 26 U/L (7.0-40); AST/SGOT 17 U/L (<34); BILIRUBIN,TOTAL 0.6 MG/DL (0.3-1.2); BLOOD UREA NITROGEN 16 MG/DL (9-23); CALCIUM LEVEL 9.1 MG/DL (8.3-10.6); CARBON DIOXIDE LEVEL 29 MMOL/L (20-31); CHLORIDE LEVEL 109 MMOL/L (98-107); CREATININE FOR GFR 1.01 MG/DL (0.70-1.30); GLOMERULAR FILTRATION RATE > 60.0 (>49); GLUCOSE, FASTING 79 MG/DL (74-106); POTASSIUM SERUM 4.4 MMOL/L (3.5-5.1); SODIUM LEVEL 144 MMOL/L (136-145); TOTAL PROTEIN 7.1 G/DL (5.7-8.2)
[2024-01-11 12:18] LABS: THYROID STIMULATING HORMONE 0.894 uIU/ML (0.55-4.78)
== END ==
LOC: M LABDRAWC 10:43
PROVIDERS: ATTEND Internal Medicine Cardiovascular Disease
DX: I48.0 Paroxysmal atrial fibrillation (principal); I34.0 Nonrheumatic mitral (valve) insufficiency

== ENCOUNTER → 2024-01-11 | Outpatient (REF) | payer OTHER ==
[2024-01-11 12:07] LABS: HEMOGLOBIN A1c 5.4 % (4.0-6.0)
[2024-01-11 12:20] LABS: FREE T4 1.38 NG/DL (0.89-1.76)
[2024-01-11 12:21] LABS: CHOLESTEROL RISK RATIO 2.18 (<5); HDL CHOLESTEROL 52.6 MG/DL (>40); LDL CHOLESTEROL 40.4 MG/DL (<100); NON-HDL-C 62.4 MG/DL
== END ==
LOC: M SFHCCLAY 08:50
PROVIDERS: ATTEND Nurse Practitioner Family
DX: I48.19 Other persistent atrial fibrillation (principal); Z98.890 Other specified postprocedural states; K21.9 Gastro-esophageal reflux disease without esophagitis; R76.8 Other specified abnormal immunological findings in serum; M25.50 Pain in unspecified joint; Z79.899 Other long term (current) drug therapy

== ENCOUNTER → 2024-04-02 | Outpatient (CLI) | payer OTHER | LOC: M CLY 14:59 | PROVIDERS: ATTEND Internal Medicine Cardiovascular Disease | DX: I48.0 Paroxysmal atrial fibrillation (principal); I34.0 Nonrheumatic mitral (valve) insufficiency; I77.810 Thoracic aortic ectasia ==

== ENCOUNTER → 2024-04-05 | Outpatient (CLI) | payer OTHER | LOC: M EKG 12:58 | PROVIDERS: ATTEND Internal Medicine Cardiovascular Disease | DX: I48.0 Paroxysmal atrial fibrillation (principal); I45.19 Other right bundle-branch block; R00.1 Bradycardia, unspecified ==

== ENCOUNTER → 2024-05-01 | Outpatient (CLI) | payer BC, OTHER | LOC: M CARPUL 13:34 | PROVIDERS: ATTEND Internal Medicine Cardiovascular Disease | DX: I48.0 Paroxysmal atrial fibrillation (principal); R06.02 Shortness of breath; I08.1 Rheumatic disorders of both mitral and tricuspid valves; I77.810 Thoracic aortic ectasia; I44.0 Atrioventricular block, first degree; I45.10 Unspecified right bundle-branch block; I27.20 Pulmonary hypertension, unspecified ==

== ENCOUNTER → 2024-09-23 | Outpatient (REF) | payer OTHER ==
[2024-09-23 16:59] LABS: BASO % 0.5 % (0.0-1.0); EOS # 0.4 10^3/uL (0.0-0.5); EOS % 4.5 % (0.0-3.0); HEMOGLOBIN 15.5 g/dl (13.5-17.5); LYMPH % 24.7 % (24.0-44.0); MEAN CORPUSCULAR HEMOGLOBIN 28.3 pg (27.0-33.0); MEAN CORPUSCULAR HGB CONC 32.3 g/dl (32.0-36.5); MEAN CORPUSCULAR VOLUME 87.8 fl (80.0-96.0); MONO # 1.2 10^3/uL (0.0-0.8); NEUTROPHILS # 4.6 10^3/uL (1.5-8.5); NEUTROPHILS % 55.6 % (36.0-66.0); PLATELET COUNT, AUTOMATED 233 10^3/uL (150-450); RED BLOOD COUNT 5.47 10^6/uL (4.30-6.10); WHITE BLOOD COUNT 8.2 10^3/uL (4.0-10.0)
[2024-09-23 17:27] LABS: ALBUMIN 3.4 G/DL (3.2-5.2); ALKALINE PHOSPHATASE 150 U/L (40-129); ALT/SGPT 26 U/L (7.0-40); AST/SGOT 21 U/L (<34); BILIRUBIN,TOTAL 0.6 MG/DL (0.3-1.2); BLOOD UREA NITROGEN 17 MG/DL (9-23); CALCIUM LEVEL 9.4 MG/DL (8.3-10.6); CARBON DIOXIDE LEVEL 30 MMOL/L (20-31); CHLORIDE LEVEL 105 MMOL/L (98-107); CREATININE FOR GFR 0.84 MG/DL (0.70-1.30); GLOMERULAR FILTRATION RATE > 60.0 (>49); GLUCOSE, FASTING 86 MG/DL (74-106); POTASSIUM SERUM 4.4 MMOL/L (3.5-5.1); SODIUM LEVEL 143 MMOL/L (136-145); TOTAL PROTEIN 7.6 G/DL (5.7-8.2)
[2024-09-23 17:28] LABS: THYROID STIMULATING HORMONE 1.278 uIU/ML (0.55-4.78)
== END ==
LOC: M LABDRAWC 16:36
PROVIDERS: ATTEND Internal Medicine Cardiovascular Disease
DX: I48.0 Paroxysmal atrial fibrillation (principal); I34.0 Nonrheumatic mitral (valve) insufficiency; R94.31 Abnormal electrocardiogram [ECG] [EKG]

== ENCOUNTER → 2025-04-25 | Outpatient (REF) | payer MEDICARE ==
[2025-04-25 18:45] LABS: ALT/SGPT 16.0 U/L (7.0-40); AST/SGOT 19.0 U/L (<34); CALCIUM LEVEL 9.9 MG/DL (8.3-10.6); CARBON DIOXIDE LEVEL 26.0 MMOL/L (20-31); CHLORIDE LEVEL 107.0 MMOL/L (98-107); CHOLESTEROL LEVEL 113.0 MG/DL (<200); CHOLESTEROL RISK RATIO 1.89 (<5); CREATININE FOR GFR 1.02 MG/DL (0.70-1.30); GLOMERULAR FILTRATION RATE 82.6 (>49); LDL CHOLESTEROL 36.8 MG/DL (<100); NON-HDL-C 53.4 MG/DL; POTASSIUM SERUM 4.5 MMOL/L (3.5-5.1); PSA SCREENING 1.07 NG/ML (< 4.00); SODIUM LEVEL 143.0 MMOL/L (136-145); TRIGLYCERIDES LEVEL 83.0 MG/DL (<150)
[2025-04-25 18:46] LABS: FREE T4 1.31 NG/DL (0.89-1.76)
[2025-04-25 18:51] LABS: BASO # 0.1 10^3/uL (0.0-0.2); BASO % 0.6 % (0.0-1.0); EOS # 0.5 10^3/uL (0.0-0.5); EOS % 5.6 % (0.0-3.0); LYMPH # 1.9 10^3/uL (1.5-5.0); LYMPH % 23.0 % (24.0-44.0); MONO # 0.9 10^3/uL (0.0-0.8); MONO % 11.3 % (2.0-8.0); NEUTROPHILS # 5.0 10^3/uL (1.5-8.5); NEUTROPHILS % 59.3 % (36.0-66.0); PLATELET COUNT, AUTOMATED 260 10^3/uL (150-450)
[2025-04-25 19:11] LABS: ESTIMATED AVERAGE GLUCOSE 120.0 MG/DL (60-110)
== END ==
LOC: M SFHCCLAY 11:22
PROVIDERS: ATTEND Nurse Practitioner Family
DX: K21.9 Gastro-esophageal reflux disease without esophagitis (principal); I48.19 Other persistent atrial fibrillation; Z98.890 Other specified postprocedural states; R76.8 Other specified abnormal immunological findings in serum; Z12.5 Encounter for screening for malignant neoplasm of prostate; I48.0 Paroxysmal atrial fibrillation; E78.5 Hyperlipidemia, unspecified

== ENCOUNTER → 2025-04-25 | Outpatient (CLI) | payer MEDICARE ==
[2025-04-25 18:43] LABS: ALT/SGPT 16.0 U/L (7.0-40); AST/SGOT 21.0 U/L (<34); CALCIUM LEVEL 9.9 MG/DL (8.3-10.6); CARBON DIOXIDE LEVEL 27.0 MMOL/L (20-31); CHLORIDE LEVEL 107.0 MMOL/L (98-107); CHOLESTEROL LEVEL 111.0 MG/DL (<200); CHOLESTEROL RISK RATIO 1.88 (<5); CREATININE FOR GFR 1.04 MG/DL (0.70-1.30); GLOMERULAR FILTRATION RATE 80.7 (>49); LDL CHOLESTEROL 36.5 MG/DL (<100); NON-HDL-C 52.1 MG/DL; POTASSIUM SERUM 4.6 MMOL/L (3.5-5.1); SODIUM LEVEL 144.0 MMOL/L (136-145); TRIGLYCERIDES LEVEL 78.0 MG/DL (<150)
[2025-04-25 18:50] LABS: FREE T4 1.36 NG/DL (0.89-1.76)
[2025-04-25 18:53] LABS: BASO # 0.1 10^3/uL (0.0-0.2); BASO % 0.6 % (0.0-1.0); EOS # 0.5 10^3/uL (0.0-0.5); EOS % 5.6 % (0.0-3.0); LYMPH # 2.0 10^3/uL (1.5-5.0); LYMPH % 23.8 % (24.0-44.0); MONO # 0.9 10^3/uL (0.0-0.8); MONO % 10.6 % (2.0-8.0); NEUTROPHILS # 4.9 10^3/uL (1.5-8.5); NEUTROPHILS % 59.2 % (36.0-66.0); PLATELET COUNT, AUTOMATED 249 10^3/uL (150-450)
== END ==
LOC: M CLY 11:24
PROVIDERS: ATTEND Physician Assistant
DX: I48.0 Paroxysmal atrial fibrillation (principal); E78.5 Hyperlipidemia, unspecified; K21.9 Gastro-esophageal reflux disease without esophagitis; Z98.890 Other specified postprocedural states; R76.8 Other specified abnormal immunological findings in serum; Z12.5 Encounter for screening for malignant neoplasm of prostate; I48.19 Other persistent atrial fibrillation
CPT/HCPCS: 71046; 80053; 80061; 83036; 84439; 84443; 85025; G0103